=== PATIENT | male | born 1960 | race Caucasian/White ===

== ENCOUNTER 2019-06-08 21:34 | Emergency (ER) | payer BC, OTHER, SELFPAY ==
--- NOTE | 2019-06-08 22:09 | ER ---
Nurse's Notes [facility] Name: Lalito Arce Age: 59 yrs Sex: Male : 1960 Arrival Date: 06/08/2019 Time: 21:39 Bed 15 Private MD: Diagnosis: Other local infections of skin and subcutaneous tissue Presentation: 06/08 21:50 Presenting complaint: Patient states: I had a spider on my arm earlier today and when I jb4 was getting ready to lay down I noticed I had redness going up my arm. 21:50 Transition of care: patient was not received from another setting of care. Onset of jb4 symptoms was June 08, 2019. Risk Assessment: Do you want to hurt yourself or someone else? Patient reports no desire to harm self or others. Initial Sepsis Screen: Does the patient meet any 2 criteria? No. Patient's initial sepsis screen is negative. Does the patient have a suspected source of infection? No. Patient's initial sepsis screen is negative. Care prior to arrival: None. 21:50 Method Of Arrival: Ambulatory jb4 21:50 Acuity: GERARDO 4 jb4 Historical: - Allergies: 22:03 No Known Allergies; jb4 - Home Meds: 22:03 None [Active]; jb4 - PMHx: 22:03 None; jb4 - PSHx: 22:03 None; jb4 - Immunization history:: Adult Immunizations up to date. - Social history:: Smoking status: Patient/guardian denies using tobacco. - Ebola Screening: : No symptoms or risks identified at this time. Screenin:06 Abuse screen: Denies threats or abuse. Nutritional screening: No deficits noted. jb4 Tuberculosis screening: No symptoms or risk factors identified. Fall Risk None identified. Assessment: 22:06 General: Appears in no apparent distress. comfortable, Behavior is calm, cooperative, jb4 appropriate for age. Pain: Denies pain. Neuro: Level of Consciousness is awake, alert, obeys commands, Oriented to person, place, time, situation. Cardiovascular: Patient's skin is warm and dry. Respiratory: Airway is patent Respiratory effort is even, unlabored, Respiratory pattern is regular, symmetrical. GI: No signs and/or symptoms were reported involving the gastrointestinal system. : No signs and/or symptoms were reported regarding the genitourinary system. EENT: No signs and/or symptoms were reported regarding the EENT system. Derm: Skin is intact, Skin is pink, warm \T\ dry. redness noted to VICKI forearms. Vital Signs: 22:03 BP 120 / 85; Pulse 60; Resp 16; Temp 97.6(O); Pulse Ox 98% on R/A; Weight 90.72 kg (R); jb4 Height 6 ft. 1 in. (185.42 cm) (R); Pain 0/10; 22:03 Body Mass Index 26.39 (90.72 kg, 185.42 cm) jb4 ED Course: 21:39 Patient arrived in ED. cf2 21:49 Tory Valenzuela FNP-C is [facility]. kb 21:49 Martin Garcia MD is Attending Physician. kb 21:50 Shlomo Pompa, RN is Primary Nurse. jb4 22:01 Triage completed. jb4 22:03 Arm band placed on right wrist. jb4 22:06 Patient has correct armband on for positive identification. Bed in low position. Call jb4 light in reach. Side rails up X 1. 22:25 No provider procedures requiring assistance completed. Patient did not have IV access jb4 during this emergency room visit. Administered Medications: No medications were administered Outcome: 22:08 Discharge ordered by . kb 22:25 Discharged to home ambulatory. jb4 22:25 Condition: stable 22:25 Discharge instructions given to patient, Instructed on discharge instructions, follow up and referral plans. no drinking with medication, medication usage, Demonstrated understanding of instructions, follow-up care, medications, Prescriptions given X 1. 22:27 Patient left the ED. jb4 Signatures: Tory Valenzuela FNP-C FNP-Shlomo Marie, RN RN jb4 Jumana Srivastava cf2
--- NOTE | 2019-06-08 22:09 | EDPHYS ---
Physician Documentation [facility] Name: Lalito Arce Age: 59 yrs Sex: Male : 1960 Arrival Date: 06/08/2019 Time: 21:39 Bed 15 Private MD: ED Physician Martin Garcia HPI: 06/08 22:23 This 59 yrs old Male presents to ER via Ambulatory with complaints of kb Possible Spider Bite. 22:24 the patient presents with a swollen area of the left forearm. Description: kb erythematous. Onset: The symptoms/episode began/occurred today. Possible cause(s): spider bite. Associated signs and symptoms: Pertinent positives: erythema. Modifying factors: the symptoms are alleviated by nothing, the symptoms are aggravated by nothing. Severity of symptoms: At their worst the symptoms were very mild, mild, in the emergency department the symptoms are unchanged. The patient has not experienced similar symptoms in the past. The patient has not recently seen a physician. Pt reports there was a spider on his arm today that he knocked off. States he got home tonight and saw that his forearm was really red. Concerned that it is getting infected. Historical: - Allergies: 22:03 No Known Allergies; jb4 - Home Meds: 22:03 None [Active]; jb4 - PMHx: 22:03 None; jb4 - PSHx: 22:03 None; jb4 - Immunization history:: Adult Immunizations up to date. - Social history:: Smoking status: Patient/guardian denies using tobacco. - Ebola Screening: : No symptoms or risks identified at this time. ROS: 22:22 Constitutional: Negative for fever, chills, and weight loss, ENT: Negative for injury, kb pain, and discharge, Neck: Negative for injury, pain, and swelling, Cardiovascular: Negative for chest pain, palpitations, and edema, Respiratory: Negative for shortness of breath, cough, wheezing, and pleuritic chest pain, Abdomen/GI: Negative for abdominal pain, nausea, vomiting, diarrhea, and constipation, MS/Extremity: Negative for injury and deformity, Neuro: Negative for headache, weakness, numbness, tingling, and seizure. 22:22 Skin: Positive for erythema, of the left forearm. Exam: 22:22 Constitutional: This is a well developed, well nourished patient who is awake, alert, kb and in no acute distress. Head/Face: Normocephalic, atraumatic. Neck: Trachea midline, no thyromegaly or masses palpated, and no cervical lymphadenopathy. Supple, full range of motion without nuchal rigidity, or vertebral point tenderness. No Meningismus. Chest/axilla: Normal chest wall appearance and motion. Nontender with no deformity. No lesions are appreciated. Cardiovascular: Regular rate and rhythm with a normal S1 and S2. No gallops, murmurs, or rubs. Normal PMI, no JVD. No pulse deficits. Respiratory: Lungs have equal breath sounds bilaterally, clear to auscultation and percussion. No rales, rhonchi or wheezes noted. No increased work of breathing, no retractions or nasal flaring. Abdomen/GI: Soft, non-tender, with normal bowel sounds. No distension or tympany. No guarding or rebound. No evidence of tenderness throughout. MS/ Extremity: Pulses equal, no cyanosis. Neurovascular intact. Full, normal range of motion. Neuro: Awake and alert, GCS 15, oriented to person, place, time, and situation. Cranial nerves II-XII grossly intact. Motor strength 5/5 in all extremities. Sensory grossly intact. Cerebellar exam normal. Normal gait. 22:22 Skin: Appearance: normal except for affected area, Color: erythematous. Vital Signs: 22:03 BP 120 / 85; Pulse 60; Resp 16; Temp 97.6(O); Pulse Ox 98% on R/A; Weight 90.72 kg (R); jb4 Height 6 ft. 1 in. (185.42 cm) (R); Pain 0/10; 22:03 Body Mass Index 26.39 (90.72 kg, 185.42 cm) jb4 MDM: 21:51 Patient medically screened. kb 22:21 Data reviewed: vital signs, nurses notes. Data interpreted: Pulse oximetry: on room air kb is 98 %. Interpretation: normal. Counseling: I had a detailed discussion with the patient and/or guardian regarding: the historical points, exam findings, and any diagnostic results supporting the discharge/admit diagnosis, the need for outpatient follow up, a family practitioner, to return to the emergency department if symptoms worsen or persist or if there are any questions or concerns that arise at home. Administered Medications: No medications were administered Disposition: 11/25 05:00 Co-signature as Attending Physician, Martin Garcia MD I agree with the assessment and tw4 plan of care. Disposition: 06/08/19 22:08 Discharged to Home. Impression: Other local infections of skin and subcutaneous tissue. - Condition is Stable. - Discharge Instructions: Cellulitis, Adult, [id number]. - Prescriptions for Bactrim DS 800- 160 mg Oral Tablet - take 1 tablet by ORAL route every 12 hours for 7 days; 14 tablet. - Medication Reconciliation Form, Thank You Letter, Antibiotic Education, Prescription Opioid Use form. - Follow up: Emergency Department; When: As needed; Reason: Worsening of condition. Follow up: Private Physician; When: 2 - 3 days; Reason: Recheck today's complaints, Continuance of care, Re-evaluation by your physician. Signatures: Tory Valenzuela, ANDRES-C PLUSH DRESSER-Shlomo Marie RN RN jb4 Martin Garcia MD MD tw4 Corrections: (The following items were deleted from the chart) 06/08 22:26 22:08 06/08/2019 22:08 Discharged to Home. Impression: Other local infections of skin jb4 and subcutaneous tissue. Condition is Stable. Forms are Medication Reconciliation Form, Thank You Letter, Antibiotic Education, Prescription Opioid Use. Follow up: Emergency Department; When: As needed; Reason: Worsening of condition. Follow up: Private Physician; When: 2 - 3 days; Reason: Recheck today's complaints, Continuance of care, Re-evaluation by your physician. kb 22:27 22:26 06/08/2019 22:08 Discharged to Home. Impression: Other local infections of skin jb4 and subcutaneous tissue. Condition is Stable. Discharge Instructions: Cellulitis, Adult, [id number]. Prescriptions for Bactrim DS 800-160 mg Oral Tablet - take 1 tablet by ORAL route every 12 hours for 7 days; 14 tablet. and Forms are Medication Reconciliation Form, Thank You Letter, Antibiotic Education, Prescription Opioid Use. Follow up: Emergency Department; When: As needed; Reason: Worsening of condition. Follow up: Private Physician; When: 2 - 3 days; Reason: Recheck today's complaints, Continuance of care, Re-evaluation by your physician. jb4
[2019-06-08 22:40] VITALS: BP 120/85; TEMP 97.6; O2SAT 98
== END 2019-06-08 22:27 | disposition home or self-care (01) ==
LOC: ER 21:34
DX: L08.9 Local infection of the skin and subcutaneous tissue, unspecified (principal)
CPT/HCPCS: 99282

== ENCOUNTER 2020-04-19 18:46 | Emergency (ER) | payer BC ==
[2020-04-19 19:54] LABS: Absolute Lymphocytes (CBC) 1.6 K/uL (0.7-4.9); Basophils % 0.7 % (0-1.3); Hematocrit 44.2 % (39.6-49.0); Lymphocytes % 18.6 % (15.3-44.8); MPV 10.4 fL (7.6-11.3); RBC Red Blood Cell Count 4.78 M/uL (4.33-5.43)
[2020-04-19 19:57] LABS: Protime INR 1.04
[2020-04-19 20:04] LABS: Potassium 4.2 mmol/L (3.5-5.1)
--- NOTE | 2020-04-19 20:20 | RAD REPORT ---
EXAM DESCRIPTION: CT - Head Brain Wo Cont - 04/19/2020 8:14 pm CLINICAL HISTORY: nose bleed Headache, drowsiness COMPARISON: No comparisons TECHNIQUE: All CT scans are performed using dose optimization technique as appropriate and may inclu de automated exposure control or mA/KV adjustment according to patient size. FINDINGS: No intracranial hemorrhage, hydrocephalus or extra-axial fluid collection.No areas of brai n edema or evidence of midline shift. Mild fluid in the right maxillary antrum. The paranasal sinuses and mastoids are otherwise clear. The calvarium is intact. IMPRESSION: No acute intracranial abnormality. Mild fluid right maxillary antrum.
--- NOTE | 2020-04-19 20:23 | RAD REPORT ---
EXAM DESCRIPTION: CT - CTFB CLINICAL HISTORY: nose bleed Facial pain and swelling. COMPARISON: No comparisons TECHNIQUE: Axial 2 mm thick images of the face were obtained with sagittal and coronal reconstructio n images. All CT scans are performed using dose optimization technique as appropriate and may include automated exposure control or mA/KV adjustment according to patient size. FINDINGS: No acute facial bone fracture is seen.The mandible is intact. The globes and orbital contents are grossly unremarkable.Mild fluid is seen in the right maxillary an trum, right ethmoid air cells and right sphenoid sinus. No nasal cavity abnormality seen. IMPRESSION: Mild right-sided sinus fluid is evident.No nasal cavity abnormality.
--- NOTE | 2020-04-19 20:45 | ER ---
Nurse's Notes [facility] Name: Lalito Arce Age: 59 yrs Sex: Male : 1960 Arrival Date: 04/19/2020 Time: 18:51 Bed 8 Private MD: Diagnosis: Acute maxillary sinusitis, unspecified;Epistaxis-resolved Presentation: 04/19 19:02 Chief complaint: Patient states: Nose bleed two days in a row. No pain or fever. ll1 Coronavirus screen: Client denies travel out of the [place] in the last 14 days. At this time, the client does not indicate any symptoms associated with coronavirus-19. Ebola Screen: Patient denies travel to an Ebola-affected area in the 21 days before illness onset. Initial Sepsis Screen: Does the patient meet any 2 criteria? No. Patient's initial sepsis screen is negative. Does the patient have a suspected source of infection? No. Patient's initial sepsis screen is negative. Risk Assessment: Do you want to hurt yourself or someone else? Patient reports no desire to harm self or others. Onset of symptoms was April 18, 2020. 19:02 Method Of Arrival: Ambulatory ll1 19:02 Acuity: GERARDO 3 ll1 Historical: - Allergies: 19:03 No Known Allergies; ll1 - PSHx: 19:03 None; ll1 - Immunization history:: Flu vaccine is not up to date. - Social history:: Smoking status: Patient denies any tobacco usage or history of. Screenin:05 Abuse screen: Denies threats or abuse. Nutritional screening: No deficits noted. jb4 Tuberculosis screening: No symptoms or risk factors identified. Fall Risk None identified. Assessment: 19:05 General: Appears in no apparent distress. comfortable, Behavior is calm, cooperative, jb4 appropriate for age. Pain: Denies pain. Neuro: Level of Consciousness is awake, alert, obeys commands, Oriented to person, place, time, situation. Cardiovascular: Patient's skin is warm and dry. Respiratory: Airway is patent Respiratory effort is even, unlabored, Respiratory pattern is regular, symmetrical. GI: No signs and/or symptoms were reported involving the gastrointestinal system. : No signs and/or symptoms were reported regarding the genitourinary system. EENT: No signs and/or symptoms were reported regarding the EENT system. Derm: Skin is intact, Skin is pink, warm \T\ dry. Musculoskeletal: Circulation, motion, and sensation intact. Range of motion: intact in all extremities. 20:06 Reassessment: Patient appears in no apparent distress at this time. Patient and/or jb4 family updated on plan of care and expected duration. Pain level reassessed. Patient is alert, oriented x 3, equal unlabored respirations, skin warm/dry/pink. 21:05 Reassessment: Patient appears in no apparent distress at this time. Patient and/or jb4 family updated on plan of care and expected duration. Pain level reassessed. Patient is alert, oriented x 3, equal unlabored respirations, skin warm/dry/pink. Vital Signs: 19:02 BP 145 / 88; Pulse 61; Resp 18; Temp 98.8; Pulse Ox 98% ; Weight 86.18 kg; Height 6 ft. ll1 1 in. (185.42 cm); Pain 0/10; 20:00 BP 117 / 75; Pulse 61; Resp 16; Pulse Ox 96% on R/A; jb4 19:02 Body Mass Index 25.07 (86.18 kg, 185.42 cm) ll1 ED Course: 18:51 Patient arrived in ED. ds1 19:03 Triage completed. ll1 19:03 Arm band placed on Patient placed in an exam room, on a stretcher. ll1 19:05 Shlomo Pompa, RN is Primary Nurse. jb4 19:05 Patient has correct armband on for positive identification. Bed in low position. Call jb4 light in reach. Side rails up X 1. Pulse ox on. NIBP on. 19:05 No provider procedures requiring assistance completed. IV discontinued, intact, jb4 bleeding controlled, No redness/swelling at site. Pressure dressing applied. 19:19 Naseem Baxter PA is PHCP. cp 19:19 Rajesh Pop MD is Attending Physician. cp 20:14 CT Facial Bones W/O Con In Process Unspecified. EDMS 20:14 CT Head Brain wo Cont In Process Unspecified. EDMS 20:44 Yandy Davey MD is Referral Physician. cp Administered Medications: No medications were administered Outcome: 20:44 Discharge ordered by . cp 21:09 Discharged to home ambulatory. jb4 21:09 Condition: stable 21:09 Discharge instructions given to patient, Instructed on discharge instructions, follow up and referral plans. medication usage, Demonstrated understanding of instructions, follow-up care, medications, Prescriptions given X 1. 21:09 Patient left the ED. jb4 Signatures: Dispatcher [employer] EDKY Gabby Mccartney ds1 Naseem Baxter PA PA cp Bryson, James, RN RN jb4 Dede Kelsey RN RN ll1 Corrections: (The following items were deleted from the chart) 21:08 21:00 BP 144 / 63; Pulse 65bpm; Resp 16bpm; Pulse Ox 98% RA; jb4 jb4
--- NOTE | 2020-04-19 20:45 | EDPHYS ---
Physician Documentation [facility] Name: Lalito Arce Age: 59 yrs Sex: Male : 1960 Arrival Date: 04/19/2020 Time: 18:51 Bed 8 Private MD: ED Physician Rajesh Pop HPI: 04/19 19:30 This 59 yrs old Male presents to ER via Ambulatory with complaints of Nose cp Bleed. 19:30 The patient presents with a nose bleed, occurred from an unknown cause, that is cp intermittent and the bleeding resolved prior to arrival. Onset: The symptoms/episode began/occurred yesterday. 19:30 Patient denies trauma and reports since yesterday has had 2 episodes of spontaneous cp nose bleed. 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 Patient denies having history of nose bleeds. Historical: - Allergies: 19:03 No Known Allergies; ll1 - PSHx: 19:03 None; ll1 - Immunization history:: Flu vaccine is not up to date. - Social history:: Smoking status: Patient denies any tobacco usage or history of. ROS: 19:35 ENT: Positive for nose bleed, Negative for ear pain, difficulty swallowing, difficulty cp handling secretions. 19:35 Eyes: Negative for injury, pain, redness, and discharge. cp 19:35 Constitutional: Negative for body aches, chills, fever, poor PO intake. 19:35 Cardiovascular: Negative for chest pain, edema, palpitations. 19:35 Respiratory: Negative for cough, shortness of breath, wheezing. 19:35 Neuro: Negative for altered mental status, dizziness, headache, syncope, weakness. 19:35 All other systems are negative. Exam: 19:40 Constitutional: The patient appears in no acute distress, alert, awake, non-toxic, well cp developed, well nourished. 19:40 Head/Face: Normocephalic, atraumatic. cp 19:40 Eyes: Periorbital structures: appear normal, Conjunctiva: normal, no exudate, no injection, Lids and lashes: appear normal, bilaterally. 19:40 ENT: External ear(s): are unremarkable, Nose: is normal, Mouth: Lips: moist, Oral mucosa: moist, Posterior pharynx: Airway: no evidence of obstruction, patent. 19:40 Neck: ROM/movement: is normal, is supple, without pain, no range of motions limitations. 19:40 Chest/axilla: Inspection: normal. 19:40 Cardiovascular: Rate: normal, Rhythm: regular. 19:40 Respiratory: the patient does not display signs of respiratory distress, Respirations: normal, no use of accessory muscles, no retractions, labored breathing, is not present. 19:40 Skin: no rash present. 19:40 Neuro: Orientation: to person, place \T\ time. Mentation: is normal. Vital Signs: 19:02 BP 145 / 88; Pulse 61; Resp 18; Temp 98.8; Pulse Ox 98% ; Weight 86.18 kg; Height 6 ft. ll1 1 in. (185.42 cm); Pain 0/10; 20:00 BP 117 / 75; Pulse 61; Resp 16; Pulse Ox 96% on R/A; jb4 19:02 Body Mass Index 25.07 (86.18 kg, 185.42 cm) ll1 MDM: 19:25 Patient medically screened. cp 19:30 Differential diagnosis: nasal fracture, trauma, sinusitis, epistaxis r/t trauma, cp spontaneous epistaxis. 20:43 Data reviewed: vital signs, nurses notes, lab test result(s), radiologic studies, CT cp scan. 20:43 Counseling: I had a detailed discussion with the patient and/or guardian regarding: the cp historical points, exam findings, and any diagnostic results supporting the discharge/admit diagnosis, lab results, radiology results, the need for outpatient follow up, an ENT specialist, to return to the emergency department if symptoms worsen or persist or if there are any questions or concerns that arise at home. 04/19 19:27 Order name: CBC with Diff; Complete Time: 20:07 cp 04/19 20:07 Interpretation: Normal except: DEEPA% 74.8. cp 04/19 19:27 Order name: BMP; Complete Time: 20:07 cp 04/19 20:07 Interpretation: Normal except: CL 108; GFR 87. cp 04/19 19:27 Order name: PT-INR; Complete Time: 20:07 cp 04/19 19: Order name: Ptt, Activated; Complete Time: 20:07 cp 04/19 19:27 Order name: CT Facial Bones W/O Con; Complete Time: 20:39 cp 04/19 19:27 Order name: CT Head Brain wo Cont; Complete Time: 20:39 cp Administered Medications: No medications were administered Disposition: 04/20 07:06 Co-signature as Attending Physician, Rajesh Pop MD. [email or web address] Disposition: 04/19/20 20:44 Discharged to Home. Impression: Acute maxillary sinusitis, unspecified, Epistaxis - resolved. - Condition is Stable. - Discharge Instructions: Nosebleed, Adult, Sinusitis, Adult. - Prescriptions for Augmentin 875- 125 mg Oral Tablet - take 1 tablet by ORAL route every 12 hours for 10 days; 20 tablet. - Medication Reconciliation Form, Thank You Letter, Antibiotic Education, Prescription Opioid Use form. - Follow up: Yandy Davey MD; When: 1 week; Reason: Recheck today's complaints. - Problem is new. - Symptoms have improved. Signatures: Dispatcher [employer] EDMS Naseem Baxter PA PA cp Bryson, James, RN RN jb4 Dede Kelsey RN RN ll1 Rajesh Pop MD MD [email or web address] Corrections: (The following items were deleted from the chart) 04/19 20:55 20:44 04/19/2020 20:44 Discharged to Home. Impression: Acute maxillary sinusitis, cp unspecified. Condition is Stable. Forms are Medication Reconciliation Form, Thank You Letter, Antibiotic Education, Prescription Opioid Use. Follow up: Yandy Davey; When: 1 week; Reason: Recheck today's complaints. Problem is new. Symptoms have improved. cp 21:09 20:55 04/19/2020 20:44 Discharged to Home. Impression: Acute maxillary sinusitis, jb4 unspecified; Epistaxis - resolved. Condition is Stable. Forms are Medication Reconciliation Form, Thank You Letter, Antibiotic Education, Prescription Opioid Use. Follow up: Yandy Davey; When: 1 week; Reason: Recheck today's complaints. Problem is new. Symptoms have improved. cp
[2020-04-19 21:51] VITALS: TEMP 98.8
[2020-04-19 21:52] VITALS: BP 117/75; O2SAT 96
== END 2020-04-19 21:09 | disposition home or self-care (01) ==
LOC: ER 18:46
DX: J01.00 Acute maxillary sinusitis, unspecified (principal)
CPT/HCPCS: 36415; 70450; 70486; 76377; 80048; 85025; 85610; 85730; 99283